=== PATIENT | female | born 1950 | race Caucasian/White ===

== ENCOUNTER 2017-05-10 15:14 | Inpatient (IN) | payer MEDICARE, OTHER ==
[~2017-05-10] VITALS: Ht 162.6 cm; Wt 54.4 kg
[2017-05-10] MEDS ORDERED: MAG HYDROX/AL HYDROX/SIMETH 30 ML UDC PO PRN (17:00)
[2017-05-10] MEDS ORDERED: MAGNESIUM HYDROXIDE 30 ML UDC PO PRN (17:00)
[2017-05-10] MEDS ORDERED: TEMAZEPAM 7.5 MG CAPSULE PO PRN (17:00)
[2017-05-10] MEDS ORDERED: MULT-1160 PO (17:04)
[2017-05-10] MEDS ORDERED: NAPR500T3 PO (17:04)
[2017-05-10] MEDS ORDERED: ASCO-340 PO (17:04)
[2017-05-10] MEDS ORDERED: FLUT9.9S NS (17:04)
[2017-05-10] MEDS ORDERED: VITA1TAB56 PO (17:04)
[2017-05-10] MEDS ORDERED: MENT113G5 TP (17:04)
--- NOTE | 2017-05-10 18:43 | NUR ---
LEAD INSPECTOR-NOTES ADMITTED 66 Y.O FEMALE FROM [facility]. PATIENT IS A/O X4 AMBULATORY ON 5150 STATUS FOR DANGER TO SELF. DR. GALARZA AND DR. ALVAREZ MADE AWARE OF PATIENT ADMISSION IN THE UNIT. UPON FACE TO FACE ASSESSMENT WITH THE PATIENT. PATIENT IS DEPRESSED, DENIES SI/HI AT THIS TIME.DENIES ANY SUICIDAL ATTEMPTS. BODY CHECK AND CONTRA BAND DONE.PATIENT WAS CALM AND COOPERATIVE DURING ADMISSION PROCESS. PATIENT WAS ORIENTED IN THE UNIT AND UNIT POLICIES. PER PATIENT SHE HAS NO FAMILY OR METEOROLOGICAL EQUIPMENT REPAIRER.SHE LIVES ALONE AND THAT SHE'S HOMELESS.
[2017-05-10 18:58] VITALS: BP 102/73
[2017-05-10 20:19] VITALS: BP 109/74
--- NOTE | 2017-05-10 23:48 | NUR ---
GPS RN NOTES: PATIENT COMPLAINED OF ITCHINESS ON HER SKIN, ASKED FOR AN ORDER OF BENADRYL MEDICATION. PAGED DR. MOTT, AND HE CALLED BACK WITH ORDERS TO GIVE BENADRYL 25MG PO Q6H PRN FOR ITCHING. NOTED AND CARRIED. WILL CONTINUE TO MONITOR PATIENT.
[2017-05-10] MEDS ORDERED: diphenhydrAMINE HCL 25 MG CAPSULE ONE (23:50)
--- NOTE | 2017-05-10 23:50 | NUR ---
GPS RN: EQUIPMENT SERVICE LEAD WENT TO THE PATIENT'S ROOM PATIENT ASKED FOR BENADRYL MEDICATION. PATIENT NOTED TO BE IN THE ROOM, SLEEPING QUIETLY. NO SIGNS OF PAIN OR ANY FACIAL GRIMACE NOTED THIS TIME. WILL CONTINUE TO MONITOR.
[2017-05-11] MEDS: diphenhydrAMINE HCL 25 MG CAPSULE PO PRN (02:46)
--- NOTE | 2017-05-11 02:50 | NUR ---
GPS RN: PATIENT APPROACHED THE PRACTICE LEAD (RN) IN THE STATIONED ASKING FOR THE MEDICATION FOR PAIN FOR HER SHOULDERS. RN ASSIGNED EXPLAINED TO PATIENT THAT HER NAPROXEN MEDICATION IS SCHEDULED AT 0900 IN THE MORNING. AROUND THIS TIME, PATIENT STARTED TO RAISE HER VOICE AND DEMANDING FOR HER MEDICATION. PRACTICE LEAD OFFERED HER ATIVAN MEDICATION WELL HER TYLENOL FOR THE PAIN. PATIENT AGREED AND TOOK THE MEDICATIONS DIRECTED. WILL CONTINUE TO MONITOR PATIENT'S PAIN STATUS.
[2017-05-11] MEDS: LORAZEPAM 0.5 MG TABLET PO PRN ×2 (02:55→12:46)
[2017-05-11] MEDS: ACETAMINOPHEN 325 MG TABLET PO PRN (02:55)
--- NOTE | 2017-05-11 03:15 | NUR ---
GPS RN: PATIENT REQUESTED FOR ICE BAG TO BE PLACED ON HER SHOULDERS/ARMS. CHARGE NURSE TJ PROVIDED A PATIENT-SAFE ICE BAG. ASSESSED PATIENT IN THE ROOM SHE CLAIMS THAT HER ARMS ARE ITCHING DESPITE BENADRYL. SKIN ASSESSMENT REVEALS NO RASHES, NO SCABS. WILL CONTINUE TO MONITOR PATIENT SKIN CONDITION.
[2017-05-11 06:40] LABS: BASOPHILS % (AUTO) 0.6 % (0.0-2.0); EOSINOPHILS # (AUTO) 0.1 /CMM (0.0-0.7); EOSINOPHILS % (AUTO) 2.8 % (0.0-6.0); HEMATOCRIT 37 % (33-45); HEMOGLOBIN 12.7 g/dL (11.5-14.8); LYMPHOCYTES # (AUTO) 1.6 /CMM (0.8-4.8); LYMPHOCYTES % (AUTO) 33.9 % (20.0-44.0); MEAN CORPUSCULAR HEMOGLOBIN 32 PG (26.0-33.0); MEAN CORPUSCULAR HGB CONC 34 g/dl (31.0-36.0); MEAN CORPUSCULAR VOLUME 94 fL (82-100); MONOCYTES # (AUTO) 0.4 /CMM (0.1-1.30); MONOCYTES % (AUTO) 8.3 % (2.0-12.0); NEUTROPHILS # (AUTO) 2.6 /CMM (1.8-8.9); NEUTROPHILS % (AUTO) 54.4 % (43.0-81.0); PLATELET COUNT (AUTO) 284 /CMM (150-450); RDW COEFFICIENT OF VARIATION 13.8 (11.5-15.0); RED BLOOD CELL COUNT(AUTO) 3.96 MIL/uL (4.0-5.2); WHITE BLOOD COUNT (AUTO) 4.7 K/uL (4.3-11.0)
[2017-05-11 06:52] LABS: CHOLESTEROL 183 mg/dL (<200); HDL CHOLESTEROL 85 mg/dL (40-60); LDL 79 mg/dL (0-99); TRIGLYCERIDES 78 mg/dL (30-150)
[2017-05-11 07:01] LABS: ALBUMIN 3.4 g/dL (3.4-5.0); BILIRUBIN,TOTAL 0.3 mg/dL (0.2-1.0); CALCIUM, SERUM 10.2 mg/dL (8.5-10.1); CREATININE 0.7 mg/dL (0.6-1.3); POTASSIUM 3.9 mmol/L (3.5-5.1); TOTAL PROTEIN, SERUM 6.3 g/dL (6.4-8.2)
[2017-05-11 08:00] VITALS: BP 108/63
[2017-05-11] MEDS: MULTIVITAMINS,THERAPEUTIC 1 UDTAB TABLET PO SCH (08:27)
[2017-05-11] MEDS: NAPROXEN 500 MG TABLET PO SCH ×2 (08:27→16:17)
[2017-05-11] MEDS: ASCORBIC ACID 500 MG TABLET PO SCH (08:28)
[2017-05-11] MEDS: VITAMIN B COMP W-C 1 TAB TABLET PO SCH (08:28)
[2017-05-11] MEDS: FLUTICASONE PROPIONATE 16 GM BOTTLE NS SCH (08:34)
[2017-05-11] MEDS: ARIPIPRAZOLE 2 MG TABLET PO SCH (12:46)
[2017-05-11] MEDS: ESCITALOPRAM OXALATE (10 MG) 10 MG TABLET PO SCH (12:46)
[2017-05-11 16:00] VITALS: BP 100/60
[2017-05-11] MEDS ORDERED: OLANZAPINE 10 MG VIAL IM STA (16:20)
[2017-05-11] MEDS ORDERED: LORAZEPAM INJ 2 MG/ML VIAL IM STA (16:20)
--- NOTE | 2017-05-11 16:21 | NUR ---
RN-CO: Patient is yelling, screaming in the hallway and in the nursing station. Non redirectable, threatening staff, yelling while psychiatrist is dictating. Cursing at the charge nurse and SPEEDER MACHINE OPERATOR "you bitches !" Notified Dr Rios and ordered Zyprexa 5mg IM and Ativan 2 mg IM STAT x1. Noted and carried out.
[2017-05-11 20:00] VITALS: BP 124/75
[2017-05-12 08:00] VITALS: BP 99/54
[2017-05-12] MEDS: VITAMIN B COMP W-C 1 TAB TABLET PO SCH (08:27)
[2017-05-12] MEDS: ASCORBIC ACID 500 MG TABLET PO SCH (08:27)
[2017-05-12] MEDS: NAPROXEN 500 MG TABLET PO SCH ×2 (08:27→17:00)
[2017-05-12] MEDS: ARIPIPRAZOLE 2 MG TABLET PO SCH (08:27)
[2017-05-12] MEDS: ESCITALOPRAM OXALATE (10 MG) 10 MG TABLET PO SCH (08:27)
[2017-05-12] MEDS: MULTIVITAMINS,THERAPEUTIC 1 UDTAB TABLET PO SCH (08:27)
[2017-05-12] MEDS: LORAZEPAM 0.5 MG TABLET PO PRN (08:28)
[2017-05-12] MEDS: FLUTICASONE PROPIONATE 16 GM BOTTLE NS SCH (08:41)
--- NOTE | 2017-05-12 14:57 | NUR ---
Initial discharge plan: Pt. is homeless and would like to be placed in a facility. SW will follow up with MD and will find her an appropriate placement. SW will help form safe and proper discharge.
[2017-05-12 16:00] VITALS: BP 106/55
[2017-05-12 20:57] VITALS: BP 89/69
[2017-05-13 08:00] VITALS: BP 101/57
[2017-05-13] MEDS: ASCORBIC ACID 500 MG TABLET PO SCH (08:42)
[2017-05-13] MEDS: NAPROXEN 500 MG TABLET PO SCH ×2 (08:42→20:22)
[2017-05-13] MEDS: ESCITALOPRAM OXALATE (10 MG) 10 MG TABLET PO SCH (08:42)
[2017-05-13] MEDS: VITAMIN B COMP W-C 1 TAB TABLET PO SCH (08:42)
[2017-05-13] MEDS: MULTIVITAMINS,THERAPEUTIC 1 UDTAB TABLET PO SCH (08:42)
[2017-05-13] MEDS: LORAZEPAM 0.5 MG TABLET PO PRN (08:59)
[2017-05-13] MEDS ORDERED: ARIPIPRAZOLE 2 MG TABLET PO SCH (09:00)
--- NOTE | 2017-05-13 09:00 | NUR ---
CASE THERAPIST-NOTES NOTED PATIENT ANXIOUS,INTRUSIVE AND DEMANDING BEHAVIOR. REDIRECTED AND ALL NEEDS ATTENDED AND ANTICIPATED. OFFERED ATIVAN BY THE CHARGE NURSE AND AGREES. ATIVAN 1MG P.O ADMINISTERED BY THE CHARGE NURSE. WILL CONT. MONITORING FOR SAFETY AND BEHAVIOR.
[2017-05-13] MEDS: FLUTICASONE PROPIONATE 16 GM BOTTLE NS SCH (09:07)
--- NOTE | 2017-05-13 13:03 | NUR ---
Pt. was referred to [facility] [id number] [place] [address] will follow up with Gt and LUIS from the facility.
[2017-05-13 15:44] VITALS: BP 100/56
[2017-05-13] MEDS ORDERED: NAPROXEN 500 MG TABLET PO SCH (17:03)
--- NOTE | 2017-05-13 17:03 | NUR ---
AUTO BUMPER STRAIGHTENER-NOTES PATIENT REQUESTED TO CHANGE THE TIME FOR NAPROXEN 500MG P.O TO 0900AM AND 2100PM. AZIZA CROWLEY AWARE AND AGREED. NOTED AND CARRIED OUT.
[2017-05-13] MEDS: METHYL SALICYLATE/MENTHOL 28GM 28 GM TUBE TP PRN (17:35)
[2017-05-13 19:45] VITALS: BP 106/62
[2017-05-13 19:57] VITALS: BP 106/62
[2017-05-13] MEDS: diphenhydrAMINE HCL 25 MG CAPSULE PO PRN (20:22)
[2017-05-14 08:00] VITALS: BP 105/70
[2017-05-14] MEDS: FLUTICASONE PROPIONATE 16 GM BOTTLE NS SCH (08:25)
[2017-05-14] MEDS: ARIPIPRAZOLE 2 MG TABLET PO SCH (08:26)
[2017-05-14] MEDS: VITAMIN B COMP W-C 1 TAB TABLET PO SCH (08:26)
[2017-05-14] MEDS: ASCORBIC ACID 500 MG TABLET PO SCH (08:26)
[2017-05-14] MEDS: MULTIVITAMINS,THERAPEUTIC 1 UDTAB TABLET PO SCH (08:26)
[2017-05-14] MEDS: NAPROXEN 500 MG TABLET PO SCH ×2 (08:26→21:17)
[2017-05-14] MEDS: ESCITALOPRAM OXALATE (10 MG) 10 MG TABLET PO SCH (08:27)
[2017-05-14 16:00] VITALS: BP 108/60
[2017-05-14 20:00] VITALS: BP 108/62
[2017-05-14] MEDS: METHYL SALICYLATE/MENTHOL 28GM 28 GM TUBE TP PRN (23:04)
[2017-05-15 08:00] VITALS: BP 115/76
[2017-05-15] MEDS: MULTIVITAMINS,THERAPEUTIC 1 UDTAB TABLET PO SCH (08:49)
[2017-05-15] MEDS: ASCORBIC ACID 500 MG TABLET PO SCH (08:49)
[2017-05-15] MEDS: ESCITALOPRAM OXALATE (10 MG) 10 MG TABLET PO SCH (08:49)
[2017-05-15] MEDS: VITAMIN B COMP W-C 1 TAB TABLET PO SCH (08:49)
[2017-05-15] MEDS: NAPROXEN 500 MG TABLET PO SCH ×2 (08:49→20:17)
[2017-05-15] MEDS: ARIPIPRAZOLE 2 MG TABLET PO SCH (08:49)
[2017-05-15] MEDS: FLUTICASONE PROPIONATE 16 GM BOTTLE NS SCH (09:00)
--- NOTE | 2017-05-15 14:36 | NUR ---
Discharge note: Pt. will discharge tomorrow to [facility] [id number] [place], [place] [id number] via [facility] at 2:00PM. Pt is notified and agrees with the plan. She denies suicidal/homicidal ideations and hallucinations at this time, she is calm and cooperative. Facility has been notified. Discharge paperwork has been singed and discharge instructions will be provided to the accepting facility tomorrow before discharge.
[2017-05-15] MEDS: METHYL SALICYLATE/MENTHOL 28GM 28 GM TUBE TP PRN ×2 (15:52→21:00)
[2017-05-15] MEDS: LORAZEPAM 0.5 MG TABLET PO PRN (15:53)
--- NOTE | 2017-05-15 15:58 | NUR ---
CYBER LEGAL ADVISOR-NOTES PATIENT STATED" I NEED MY ATIVAN FOR MY ANXIETY". ATIVAN 1MG P.O GIVEN PRN ORDER. WILL CONT. MONITOR FOR SAFETY AND BEHAVIOR.
[2017-05-15 16:00] VITALS: BP 97/62
[2017-05-15 20:00] VITALS: BP 101/60
[2017-05-15] MEDS: diphenhydrAMINE HCL 25 MG CAPSULE PO PRN (21:05)
[2017-05-16 07:59] VITALS: BP 110/69
[2017-05-16] MEDS: ARIPIPRAZOLE 2 MG TABLET PO SCH (08:33)
[2017-05-16] MEDS: ASCORBIC ACID 500 MG TABLET PO SCH (08:34)
[2017-05-16] MEDS: VITAMIN B COMP W-C 1 TAB TABLET PO SCH (08:34)
[2017-05-16] MEDS: NAPROXEN 500 MG TABLET PO SCH (08:34)
[2017-05-16] MEDS: MULTIVITAMINS,THERAPEUTIC 1 UDTAB TABLET PO SCH (08:35)
[2017-05-16] MEDS: ESCITALOPRAM OXALATE (10 MG) 10 MG TABLET PO SCH (08:35)
[2017-05-16] MEDS: FLUTICASONE PROPIONATE 16 GM BOTTLE NS SCH (08:35)
--- NOTE | 2017-05-16 10:20 | NUR ---
DR. DE LA GARZA GAVE AN ORDER TO D/C HOLD AND D/C TO [facility]. PT. WITHOUT DISTRESS, DENIES SUICIDAL AND HOMICIDAL. TO FOLLOW UP WITH PSYCH AND MEDICAL DOCTORS. CALLED THE FACILITY AND SPOKE TO STEPHANY THE CHARGE AND CONFIRMED THEY WILL ACCEPT THE PT. AND TO SEND PT. AT 5:00 PM.
[2017-05-16] MEDS: ACETAMINOPHEN 325 MG TABLET PO PRN (16:07)
--- NOTE | 2017-05-16 16:07 | NUR ---
administered tylenol 650 mg po prn for right arm pain 06/08, continued monitoring.
[2017-05-16 16:14] VITALS: BP 108/63
--- NOTE | 2017-05-16 17:30 | NUR ---
DISCHARGE NOTES/ PATIENT D/C AT THIS TIME GOING SNF. PT A/O X4, MED COMPLIANT, V/S STABLE, MEDICALLY STABLE, NO C/O PAIN. PATIENT DENIED SI/HI/AVH AT THIS TIME. MED RECONCILIATION, AND D/C ORDER REVIEWED, AND EXPLAINED TO. REPORT GIVEN SNF NURSE MICHAEL. NURSE VERBALIZED UNDERSTANDING. BELONGING RETURNED BACK TO THE PATIENT. PATIENT SUPERVISOR PASTRY BY AMBULANCE.
== END 2017-05-16 17:30 | DRG 885 ==
LOC: GPS 15:14
PROVIDERS: ADMIT Psychiatry & Neurology Psychiatry; ATTEND Family Medicine
DX: F33.3 Major depressive disorder, recurrent, severe with psychotic symptoms (principal); R45.851 Suicidal ideations; F29 Unspecified psychosis not due to a substance or known physiological condition; G89.4 Chronic pain syndrome; F41.9 Anxiety disorder, unspecified; H40.9 Unspecified glaucoma; Z79.899 Other long term (current) drug therapy; Z73.6 Limitation of activities due to disability
CPT/HCPCS: 36415; 80053-TC; 80061-TC; 85025-TC; 87081-TC; J2060; J3490; Q0163

== ENCOUNTER → 2019-10-18 | Outpatient (CLI) | payer MEDICARE, OTHER ==
[~2019-10-18] MED LIST: ASCO-340 PO; FLUT9.9S NS; MENT113G5 TP; MULT-1160 PO; NAPR-1009 PO; VITA1TAB56 PO
== END | disposition home or self-care (01) ==
LOC: MSC 09:40
PROVIDERS: ATTEND Anesthesiology
DX: L29.9 Pruritus, unspecified (principal); M79.2 Neuralgia and neuritis, unspecified; M62.830 Muscle spasm of back; F20.0 Paranoid schizophrenia; F32.9 Major depressive disorder, single episode, unspecified; G47.00 Insomnia, unspecified; Z79.899 Other long term (current) drug therapy

== ENCOUNTER 2019-11-15 10:30 | Outpatient (CLI) | payer MEDICARE, OTHER | END 2019-11-15 23:59 | disposition home or self-care (01) | LOC: WOU 10:30 | PROVIDERS: ATTEND Podiatrist Foot & Ankle Surgery | DX: M19.072 Primary osteoarthritis, left ankle and foot (principal); M19.071 Primary osteoarthritis, right ankle and foot; M20.12 Hallux valgus (acquired), left foot; M20.11 Hallux valgus (acquired), right foot; M20.41 Other hammer toe(s) (acquired), right foot; M20.42 Other hammer toe(s) (acquired), left foot | CPT/HCPCS: 73630 ×2; G0463 ==

== ENCOUNTER → 2019-11-15 | Outpatient (CLI) | payer MEDICARE, OTHER | END | disposition home or self-care (01) | LOC: MSC 09:40 | PROVIDERS: ATTEND Anesthesiology | DX: L29.9 Pruritus, unspecified (principal); M79.2 Neuralgia and neuritis, unspecified; M62.830 Muscle spasm of back; F20.0 Paranoid schizophrenia; G47.00 Insomnia, unspecified; F32.9 Major depressive disorder, single episode, unspecified ==

== ENCOUNTER 2019-12-02 08:35 | Outpatient (CLI) | payer MEDICARE, OTHER | END 2019-12-02 23:59 | disposition home or self-care (01) | LOC: WOU 08:35 | PROVIDERS: ATTEND Podiatrist Foot & Ankle Surgery | DX: M20.41 Other hammer toe(s) (acquired), right foot (principal); M20.42 Other hammer toe(s) (acquired), left foot; Z59.0 Homelessness | CPT/HCPCS: G0463 ==

== ENCOUNTER 2019-12-06 14:00 | Outpatient (CLI) | payer MEDICARE, OTHER | END 2019-12-06 23:59 | disposition home or self-care (01) | LOC: WOU 14:00 | PROVIDERS: ATTEND Podiatrist Foot & Ankle Surgery | DX: M20.41 Other hammer toe(s) (acquired), right foot (principal); M20.42 Other hammer toe(s) (acquired), left foot; M20.21 Hallux rigidus, right foot; M20.22 Hallux rigidus, left foot; M20.11 Hallux valgus (acquired), right foot; M20.12 Hallux valgus (acquired), left foot | CPT/HCPCS: G0463 ==

== ENCOUNTER 2019-12-27 11:00 | Outpatient (CLI) | payer MEDICARE, OTHER | END 2019-12-27 23:59 | disposition home or self-care (01) | LOC: MSC 11:00 | PROVIDERS: ATTEND Anesthesiology | DX: M17.11 Unilateral primary osteoarthritis, right knee (principal); M79.2 Neuralgia and neuritis, unspecified; M62.830 Muscle spasm of back; L29.9 Pruritus, unspecified; F20.0 Paranoid schizophrenia; G47.00 Insomnia, unspecified; F32.9 Major depressive disorder, single episode, unspecified ==

== ENCOUNTER 2020-06-19 10:35 | Outpatient (CLI) | payer MEDICARE, OTHER | END 2020-06-19 23:59 | disposition home or self-care (01) | LOC: MSC 10:35 | PROVIDERS: ATTEND Anesthesiology | DX: M17.11 Unilateral primary osteoarthritis, right knee (principal); M79.2 Neuralgia and neuritis, unspecified; M62.830 Muscle spasm of back; L29.9 Pruritus, unspecified; F20.0 Paranoid schizophrenia; F32.9 Major depressive disorder, single episode, unspecified; G47.00 Insomnia, unspecified; Z79.891 Long term (current) use of opiate analgesic ==

== ENCOUNTER → 2020-07-17 | Outpatient (CLI) | payer MEDICARE, OTHER | END | disposition home or self-care (01) | LOC: MSC 11:30 | PROVIDERS: ATTEND Anesthesiology | DX: M17.11 Unilateral primary osteoarthritis, right knee (principal); M79.2 Neuralgia and neuritis, unspecified; L29.9 Pruritus, unspecified; M62.830 Muscle spasm of back; F20.0 Paranoid schizophrenia; G47.00 Insomnia, unspecified; F32.9 Major depressive disorder, single episode, unspecified; Z79.891 Long term (current) use of opiate analgesic; Z79.899 Other long term (current) drug therapy ==